=== PATIENT | male | born 1995 | race Two or more races ===

== ENCOUNTER 2016-07-24 20:57 | Emergency (ER) | payer MEDICAID ==
[~2016-07-24] VITALS: Ht 193 cm; Wt 103.1 kg
[~2016-07-24 20:57] MED LIST: ALBU0.63 NEB; BECL8.7A5 INH; MONT10TA6 PO
[2016-07-24 21:00] VITALS: BP 150/96
[2016-07-24] MEDS ORDERED: KETOROLAC 30 MG/1 ML IM ONE (22:00)
[2016-07-24] MEDS ORDERED: METHOCARBAMOL 750 MG TABLET PO ONE (22:00)
[2016-07-24] MEDS ORDERED: KETOROLAC 30 MG/1 ML ONE (22:00)
[2016-07-24] MEDS ORDERED: METHOCARBAMOL 750 MG TABLET ONE (22:00)
== END 2016-07-24 23:22 | disposition home or self-care (01) ==
LOC: ED 23:16
DX: S76.011A Strain of muscle, fascia and tendon of right hip, initial encounter (principal); F12.10 Cannabis abuse, uncomplicated; X50.9XXA Other and unspecified overexertion or strenuous movements or postures, initial encounter; Y93.89 Activity, other specified; Y92.89 Other specified places as the place of occurrence of the external cause; Y99.8 Other external cause status; Z87.891 Personal history of nicotine dependence
CPT/HCPCS: 73552; 96372; 99284; J1885

== ENCOUNTER 2018-07-05 13:51 | Emergency (ER) | payer MEDICAID, OTHER ==
[~2018-07-05] VITALS: Ht 188 cm; Wt 102.1 kg
[~2018-07-05 13:51] MED LIST changes: -BECL8.7A5 INH; +BECL8.7A7 INH
[2018-07-05 14:00] VITALS: BP 133/87
[2018-07-05 14:25] LABS: BASOPHILS # (AUTO) 0.04 x10^3/uL (0-0.1); BASOPHILS % (AUTO) 0 % (0-1); EOSINOPHILS # (AUTO) 0.37 x10^3/uL (0-0.4); EOSINOPHILS % (AUTO) 4 % (1-7); LYMPHOCYTES # (AUTO) 3.09 x10^3/uL (1-3.4); LYMPHOCYTES % (AUTO) 31 % (22-44); MD NO; MEAN CORPUSCULAR HEMOGLOBIN 28.5 pg (27.5-34.5); MEAN CORPUSCULAR HGB CONC 33.3 g/dL (33.2-36.2); MEAN CORPUSCULAR VOLUME 85.6 fL (81-97); MEAN PLATELET VOLUME 8.8 fL (7.4-10.4); MONOCYTES # (AUTO) 0.83 x10^3/uL (0.2-0.8); MONOCYTES % (AUTO) 8 % (2-9); NEUTROPHILS # (AUTO) 5.56 x10^3/uL (1.8-6.8); NEUTROPHILS % (AUTO) 56 % (42-75); PLATELET COUNT 297 x10^3/uL (130-400); RED BLOOD COUNT 6.18 x10^6/uL (4.38-5.82); RED CELL DISTRIBUTION WIDTH 13.5 % (9.4-14.8)
[2018-07-05 14:32] LABS: ALBUMIN 4.6 g/dL (3.4-5.0); ANION GAP 6 mmol/L (5-15); CHLORIDE 108 mmol/L (98-107); CREATININE 1.18 mg/dL (0.7-1.3)
--- NOTE | 2018-07-05 15:50 | NUR ---
To room at this time.
--- NOTE | 2018-07-05 16:08 | NUR ---
FIRST CONTACT WITH PT. Patient/Caregiver given discharge instructions and they have confirmed that they understand the instructions. Patient ambulatory with steady gait. PT LEFT WITH ALL PERSONAL BELONGINGS.
== END 2018-07-05 16:10 | disposition home or self-care (01) ==
LOC: ED 16:04
DX: E86.0 Dehydration (principal); R51 Headache
CPT/HCPCS: 36415; 80048; 82040; 85025; 93005; 99284

== ENCOUNTER 2018-12-22 11:26 | Emergency (ER) | payer MEDICAID ==
[~2018-12-22] VITALS: Ht 188 cm; Wt 113.0 kg
[2018-12-22] MEDS ORDERED: HYDROcodone/APAP 5/325 TABLET ONE (12:27)
[2018-12-22] MEDS ORDERED: HYDROcodone/APAP 5/325 TABLET PO ONE (12:30)
--- NOTE | 2018-12-22 12:37 | NUR ---
Plan of care updated with patient, questions answered. Patient laying in bed speaking with family, no vomiting.
[2018-12-22 12:43] LABS: BASOPHILS # (AUTO) 0.04 x10^3/uL (0-0.1); BASOPHILS % (AUTO) 1 % (0-1); EOSINOPHILS # (AUTO) 0.33 x10^3/uL (0-0.4); EOSINOPHILS % (AUTO) 4 % (1-7); LYMPHOCYTES # (AUTO) 3.05 x10^3/uL (1-3.4); LYMPHOCYTES % (AUTO) 36 % (22-44); MD NO; MEAN CORPUSCULAR HEMOGLOBIN 29.9 pg (27.5-34.5); MEAN CORPUSCULAR HGB CONC 33.5 g/dL (33.2-36.2); MEAN CORPUSCULAR VOLUME 89.2 fL (81-97); MEAN PLATELET VOLUME 8.7 fL (7.4-10.4); MONOCYTES # (AUTO) 0.84 x10^3/uL (0.2-0.8); MONOCYTES % (AUTO) 10 % (2-9); NEUTROPHILS # (AUTO) 4.17 x10^3/uL (1.8-6.8); NEUTROPHILS % (AUTO) 49 % (42-75); PLATELET COUNT 253 x10^3/uL (130-400); RED BLOOD COUNT 5.18 x10^6/uL (4.38-5.82); RED CELL DISTRIBUTION WIDTH 13.7 % (9.4-14.8)
[2018-12-22 12:54] LABS: ALANINE AMINOTRANSFERASE 99 U/L (12-78); ALBUMIN 3.9 g/dL (3.4-5.0); ANION GAP 5 mmol/L (5-15); CHLORIDE 107 mmol/L (98-107); CREATININE 0.95 mg/dL (0.7-1.3)
[2018-12-22 12:55] LABS: ALKALINE PHOSPHATASE 69 U/L (45-117); BILIRUBIN,TOTAL 0.6 mg/dL (0.2-1.0); TOTAL PROTEIN 7.1 g/dL (6.4-8.2)
--- NOTE | 2018-12-22 13:36 | NUR ---
Discharge instructions discussed with patient including when to return to emergency department, patient verbalizes understanding. Patient states he is currently pain free, ambulates with steady gait to discharge desk in no acute distress with his mother. Patient's mother to drive him today.
[2018-12-22 13:37] VITALS: BP 130/76
== END 2018-12-22 13:39 | disposition home or self-care (01) ==
LOC: ED 12:32
DX: K62.5 Hemorrhage of anus and rectum (principal); R10.84 Generalized abdominal pain
CPT/HCPCS: 36415; 80053; 83605; 85025; 99283

== ENCOUNTER 2019-03-24 17:29 | Emergency (ER) | payer MEDICAID ==
[~2019-03-24] VITALS: Ht 188 cm; Wt 110.9 kg
[2019-03-24 17:50] VITALS: BP 144/96
[2019-03-24 18:18] LABS: BASOPHILS # (AUTO) 0.04 x10^3/uL (0-0.1); BASOPHILS % (AUTO) 1 % (0-1); EOSINOPHILS # (AUTO) 0.22 x10^3/uL (0-0.4); EOSINOPHILS % (AUTO) 3 % (1-7); LYMPHOCYTES # (AUTO) 3.22 x10^3/uL (1-3.4); LYMPHOCYTES % (AUTO) 39 % (22-44); MD NO; MEAN CORPUSCULAR HEMOGLOBIN 29.5 pg (27.5-34.5); MEAN CORPUSCULAR VOLUME 86.7 fL (81-97); MEAN PLATELET VOLUME 8.8 fL (7.4-10.4); MONOCYTES # (AUTO) 0.64 x10^3/uL (0.2-0.8); MONOCYTES % (AUTO) 8 % (2-9); NEUTROPHILS # (AUTO) 4.19 x10^3/uL (1.8-6.8); NEUTROPHILS % (AUTO) 50 % (42-75); PLATELET COUNT 257 x10^3/uL (130-400); RED BLOOD COUNT 5.48 x10^6/uL (4.38-5.82); RED CELL DISTRIBUTION WIDTH 13.2 % (9.4-14.8)
[2019-03-24 18:27] LABS: ALANINE AMINOTRANSFERASE 92 U/L (12-78); ALBUMIN 4.5 g/dL (3.4-5.0); ANION GAP 5 mmol/L (5-15); CALCIUM 9.2 mg/dL (8.5-10.1); CHLORIDE 111 mmol/L (98-107); CREATININE 1.11 mg/dL (0.7-1.3)
[2019-03-24 18:30] LABS: ALKALINE PHOSPHATASE 66 U/L (45-117); BILIRUBIN,TOTAL 0.5 mg/dL (0.2-1.0); TOTAL PROTEIN 7.3 g/dL (6.4-8.2)
[2019-03-24 20:18] LABS: MICROSCOPIC NOT IND
[2019-03-24 20:24] LABS: CULTURE INDICATED? NO
--- NOTE | 2019-03-24 23:42 | NUR ---
NO ANSWER FOR RE-VITAL.
--- NOTE | 2019-03-25 00:06 | NUR ---
NILX2
--- NOTE | 2019-03-25 00:08 | NUR ---
NILX3
--- NOTE | 2019-03-25 00:09 | NUR ---
NO ANSWER WHEN CALLED TO ROOM PATIENT.
== END 2019-03-25 00:10 | disposition left against medical advice (07) ==
LOC: ED 03-25 00:04
DX: R10.84 Generalized abdominal pain (principal); K92.1 Melena
CPT/HCPCS: 36415; 80053; 81003; 85025; 99283

== ENCOUNTER 2019-04-18 17:10 | Emergency (ER) | payer MEDICAID ==
[~2019-04-18] VITALS: Ht 182.9 cm; Wt 115.0 kg
[2019-04-18 17:32] VITALS: BP 119/80
[2019-04-18 17:57] LABS: BASOPHILS # (AUTO) 0.03 x10^3/uL (0-0.1); BASOPHILS % (AUTO) 0 % (0-1); EOSINOPHILS # (AUTO) 0.29 x10^3/uL (0-0.4); EOSINOPHILS % (AUTO) 3 % (1-7); LYMPHOCYTES # (AUTO) 3.09 x10^3/uL (1-3.4); LYMPHOCYTES % (AUTO) 36 % (22-44); MD NO; MEAN CORPUSCULAR HEMOGLOBIN 29.6 pg (27.5-34.5); MEAN CORPUSCULAR HGB CONC 34.3 g/dL (33.2-36.2); MEAN CORPUSCULAR VOLUME 86.2 fL (81-97); MEAN PLATELET VOLUME 8.4 fL (7.4-10.4); MONOCYTES % (AUTO) 8 % (2-9); NEUTROPHILS % (AUTO) 52 % (42-75); PLATELET COUNT 252 x10^3/uL (130-400); RED BLOOD COUNT 5.51 x10^6/uL (4.38-5.82); RED CELL DISTRIBUTION WIDTH 13.1 % (9.4-14.8)
[2019-04-18] MEDS ORDERED: SODIUM CHLORIDE FLUSH 10ML SYR IVF ONE (18:00)
[2019-04-18] MEDS ORDERED: MORPHINE SULFATE 4 MG/ML, 1ML IVPush PRN (18:00)
[2019-04-18] MEDS ORDERED: ONDANSETRON 2MG/ML, 2ML IVPush ONE (18:00)
[2019-04-18] MEDS ORDERED: SODIUM CHLORIDE 0.9% 1,000ML IVBOLUS ONE (18:00)
[2019-04-18 18:02] LABS: INTERNATIONAL NORMALIZED RATIO 0.94 (0.93-1.1)
[2019-04-18 18:05] LABS: ALANINE AMINOTRANSFERASE 118 U/L (12-78); ANION GAP 5 mmol/L (5-15); CALCIUM 9.2 mg/dL (8.5-10.1); CHLORIDE 107 mmol/L (98-107)
[2019-04-18 18:07] LABS: ALKALINE PHOSPHATASE 66 U/L (45-117); BILIRUBIN,TOTAL 0.4 mg/dL (0.2-1.0); TOTAL PROTEIN 7.2 g/dL (6.4-8.2)
--- NOTE | 2019-04-18 19:17 | NUR ---
pt called to room from lobby
--- NOTE | 2019-04-18 19:18 | NUR ---
not in lobby
--- NOTE | 2019-04-18 19:40 | NUR ---
not in lobby
--- NOTE | 2019-04-18 19:58 | NUR ---
not in lobby
== END 2019-04-18 20:00 | disposition left against medical advice (07) ==
LOC: ED 18:10
DX: K62.5 Hemorrhage of anus and rectum (principal); R11.2 Nausea with vomiting, unspecified
CPT/HCPCS: 36415; 80053; 85025; 85610; 99283

== ENCOUNTER 2019-06-01 17:17 | Emergency (ER) | payer MEDICAID ==
[~2019-06-01] VITALS: Ht 190.5 cm; Wt 98.2 kg
[2019-06-01] MEDS ORDERED: ALBUTEROL HFA 90 MCG/SPRAY INH ONE (17:30)
[2019-06-01] MEDS ORDERED: ALBUTEROL HFA 90 MCG/SPRAY INH PRN (17:30)
[2019-06-01] MEDS ORDERED: PRED20TA PO (17:35)
[2019-06-01] MEDS ORDERED: ACET-1600 PO (17:36)
[2019-06-01] MEDS ORDERED: MESA1.2T3 PO (17:37)
[2019-06-01] MEDS ORDERED: MELO15TA24 PO (17:37)
[2019-06-01] MEDS ORDERED: CHOL10002 PO (17:39)
[2019-06-01] MEDS ORDERED: GUAN2TAB15 PO (17:39)
[2019-06-01 17:40] VITALS: BP 147/91
== END 2019-06-01 18:46 | disposition home or self-care (01) ==
LOC: ED 17:35
DX: J45.41 Moderate persistent asthma with (acute) exacerbation (principal); R05 Cough; Z87.891 Personal history of nicotine dependence
CPT/HCPCS: 71045; 93005; 99283

== ENCOUNTER 2019-08-15 08:35 | Outpatient (CLI) | payer MEDICAID ==
[~2019-08-15 08:35] MED LIST changes: +ACET-1600 PO; +CHOL10002 PO; +GUAN2TAB15 PO; +MELO15TA24 PO; +MESA1.2T3 PO; +PRED20TA PO
[2019-08-15] MEDS ORDERED: GADOTERATE 10 MMOL/20 ML VIAL ONE (10:00)
[2019-08-15] MEDS ORDERED: GLUCAGON 1 MG ONE (10:00)
== END 2019-08-15 23:59 | disposition home or self-care (01) ==
LOC: CFH 08:35
PROVIDERS: ATTEND Internal Medicine Gastroenterology
DX: K62.5 Hemorrhage of anus and rectum (principal); K50.00 Crohn's disease of small intestine without complications; K59.00 Constipation, unspecified; R10.9 Unspecified abdominal pain; R13.19 Other dysphagia
CPT/HCPCS: 70210; 72197; 74183; A9575; J1610

== ENCOUNTER 2019-08-27 09:33 | Emergency (ER) | payer MEDICAID ==
[~2019-08-27] VITALS: Ht 188 cm; Wt 118.0 kg
[2019-08-27 10:23] LABS: BASOPHILS # (AUTO) 0.04 x10^3/uL (0-0.1); BASOPHILS % (AUTO) 1 % (0-1); EOSINOPHILS # (AUTO) 0.12 x10^3/uL (0-0.4); EOSINOPHILS % (AUTO) 2 % (1-7); LYMPHOCYTES # (AUTO) 3.26 x10^3/uL (1-3.4); LYMPHOCYTES % (AUTO) 39 % (22-44); MD NO; MEAN CORPUSCULAR HEMOGLOBIN 29.8 pg (27.5-34.5); MEAN CORPUSCULAR HGB CONC 33.8 g/dL (33.2-36.2); MEAN CORPUSCULAR VOLUME 88.2 fL (81-97); MEAN PLATELET VOLUME 8.3 fL (7.4-10.4); MONOCYTES # (AUTO) 0.74 x10^3/uL (0.2-0.8); MONOCYTES % (AUTO) 9 % (2-9); NEUTROPHILS # (AUTO) 4.13 x10^3/uL (1.8-6.8); NEUTROPHILS % (AUTO) 50 % (42-75); PLATELET COUNT 259 x10^3/uL (130-400); RED BLOOD COUNT 5.58 x10^6/uL (4.38-5.82); RED CELL DISTRIBUTION WIDTH 12.9 % (9.4-14.8)
[2019-08-27] MEDS ORDERED: SODIUM CHLORIDE FLUSH 10ML SYR IVF ONE (10:30)
[2019-08-27] MEDS ORDERED: ONDANSETRON 2MG/ML, 2ML IVPush ONE (10:30)
[2019-08-27] MEDS ORDERED: HYDROmorphone 2 MG/ML, 1ML IVPush PRN (10:30)
[2019-08-27 10:36] LABS: ALANINE AMINOTRANSFERASE 153 U/L (12-78); ALBUMIN 4.4 g/dL (3.4-5.0); ANION GAP 8 mmol/L (5-15); CALCIUM 9.6 mg/dL (8.5-10.1); CHLORIDE 109 mmol/L (98-107)
[2019-08-27 10:38] LABS: ALKALINE PHOSPHATASE 61 U/L (45-117); BILIRUBIN,TOTAL 0.9 mg/dL (0.2-1.0); CREATININE 1.06 mg/dL (0.7-1.3); TOTAL PROTEIN 7.7 g/dL (6.4-8.2)
--- NOTE | 2019-08-27 11:00 | NUR ---
REPORT RC'VD FROM [facility] AND CARE OF PT ASSUMED.
[2019-08-27] MEDS ORDERED: HYDROmorphone 2 MG/ML, 1ML ONE (11:11)
[2019-08-27] MEDS ORDERED: ONDANSETRON 2MG/ML, 2ML ONE (11:12)
--- NOTE | 2019-08-27 11:15 | NUR ---
Anamika sharma in EDM - 08/27/19 at 1159 by MISSYON ALL MONITORS IN PLACE. PT AFIB 70s-90s. IV STARTED AND LABS DRAWN. RV'WD POC WITH PT.
--- NOTE | 2019-08-27 11:27 | NUR ---
PT MEDICATED PER ORDERS. STATES, "THIS IS DEFINITELY A CROHN'S FLARE UP. I'VE BEEN UNDER A LOT OF STRESS LATELY, AND MY CROHN'S FLARES UP WHEN I'M STRESSED." Addendum: 08/27/19 at 1129 by HBENSON PT HAD SOME NAUSEA/DRY HEAVING AFTER MEDS. WATER PROVIDED.
[2019-08-27 11:40] LABS: MICROSCOPIC NOT IND
--- NOTE | 2019-08-27 11:53 | NUR ---
GEOFF TORRES AT FOR RECHECK.
[2019-08-27 12:30] VITALS: BP 145/104
--- NOTE | 2019-08-27 12:30 | NUR ---
D/C INSTRUCTIONS, MEDS & F/U APPT RV'WD WITH PT, HE VERBALIZES UNDERSTANDING. RX GIVEN X1. PT AMBULATED OUT OF ED WITHOUT DIFFICULTY.
== END 2019-08-27 12:36 | disposition home or self-care (01) ==
LOC: ED 11:30
DX: K50.90 Crohn's disease, unspecified, without complications (principal); Z20.828 Contact with and (suspected) exposure to other viral communicable diseases; G89.29 Other chronic pain; R10.84 Generalized abdominal pain; J45.901 Unspecified asthma with (acute) exacerbation; Z87.891 Personal history of nicotine dependence; Z76.0 Encounter for issue of repeat prescription
CPT/HCPCS: 36415; 71045; 80053; 81003; 83690; 85025; 96374; 96375; 99284; J1170; J2405; U0001

== ENCOUNTER 2019-09-18 13:04 | Emergency (ER) | payer MEDICAID ==
[~2019-09-18] VITALS: Ht 188 cm; Wt 118.2 kg
--- NOTE | 2019-09-18 13:50 | NUR ---
STAFF COUNSELOR: PT TO ROOM FROM ELKE RUIZ
[2019-09-18] MEDS ORDERED: SODIUM CHLORIDE FLUSH 10ML SYR IVF ONE (14:00)
[2019-09-18] MEDS ORDERED: SODIUM CHLORIDE 0.9% 1,000ML IVBOLUS ONE (14:00)
[2019-09-18] MEDS ORDERED: MORPHINE SULFATE 4 MG/ML, 1ML IVPush PRN (14:00)
[2019-09-18] MEDS ORDERED: METOCLOPRAMIDE 5 MG/ML, 2ML IVPush ONE (14:00)
[2019-09-18] MEDS ORDERED: DIPHENHYDRAMINE 50 MG/ML, 1ML IVPush ONE (14:00)
[2019-09-18] MEDS ORDERED: METOCLOPRAMIDE 5 MG/ML, 2ML ONE (14:05)
[2019-09-18] MEDS ORDERED: MORPHINE SULFATE 4 MG/ML, 1ML ONE (14:05)
[2019-09-18] MEDS ORDERED: DIPHENHYDRAMINE 50 MG/ML, 1ML ONE (14:05)
[2019-09-18 14:16] LABS: BASOPHILS # (AUTO) 0.03 x10^3/uL (0-0.1); BASOPHILS % (AUTO) 0 % (0-1); EOSINOPHILS # (AUTO) 0.22 x10^3/uL (0-0.4); EOSINOPHILS % (AUTO) 2 % (1-7); LYMPHOCYTES # (AUTO) 2.97 x10^3/uL (1-3.4); LYMPHOCYTES % (AUTO) 32 % (22-44); MD NO; MEAN CORPUSCULAR HGB CONC 32.6 g/dL (33.2-36.2); MEAN CORPUSCULAR VOLUME 89.1 fL (81-97); MEAN PLATELET VOLUME 8.7 fL (7.4-10.4); MONOCYTES # (AUTO) 0.62 x10^3/uL (0.2-0.8); MONOCYTES % (AUTO) 7 % (2-9); NEUTROPHILS # (AUTO) 5.47 x10^3/uL (1.8-6.8); NEUTROPHILS % (AUTO) 59 % (42-75); PLATELET COUNT 270 x10^3/uL (130-400); RED BLOOD COUNT 5.53 x10^6/uL (4.38-5.82); RED CELL DISTRIBUTION WIDTH 12.8 % (9.4-14.8)
[2019-09-18 14:21] VITALS: BP 149/98
[2019-09-18 14:21] LABS: INTERNATIONAL NORMALIZED RATIO 0.93 (0.93-1.1); PROTHROMBIN TIME 9.8 Seconds (9.6-11.5)
[2019-09-18 14:22] LABS: ALANINE AMINOTRANSFERASE 76 U/L (12-78); ALBUMIN 4.3 g/dL (3.4-5.0); ANION GAP 5 mmol/L (5-15); CALCIUM 9.6 mg/dL (8.5-10.1); CHLORIDE 111 mmol/L (98-107); CREATININE 1.04 mg/dL (0.7-1.3)
--- NOTE | 2019-09-18 14:22 | NUR ---
pt to ed from home. c/o abd pain, diarrhea w/ dark and bright blood x2 days, bruising mid abd that has gotten worse, denies trauma. hx crohns, sts med compliance but does not know all names. c/o dizzy, weak, nausea no vomiting. law at bedside for eval. piv/labs/meds/fluids plan ct scan. call [facility] in reach. as
[2019-09-18 14:27] LABS: ALKALINE PHOSPHATASE 92 U/L (45-117); BILIRUBIN,TOTAL 0.3 mg/dL (0.2-1.0); TOTAL PROTEIN 7.3 g/dL (6.4-8.2)
--- NOTE | 2019-09-18 15:04 | NUR ---
REPORT RECEIVED FROM DUSTIN BARNES. ASSUMED CARE
--- NOTE | 2019-09-18 15:04 | NUR ---
pt drowsing after meds awaiting ct. report to tanna best. as
[2019-09-18] MEDS ORDERED: OMNIPAQUE 350 MG/ML, 100ML BOTTLE ONE (15:39)
== END 2019-09-18 16:44 | disposition home or self-care (01) ==
LOC: ED 14:07
DX: R10.84 Generalized abdominal pain (principal); R19.7 Diarrhea, unspecified; R68.83 Chills (without fever); J45.909 Unspecified asthma, uncomplicated; Z87.891 Personal history of nicotine dependence
CPT/HCPCS: 36415; 74177; 80053; 85025; 85610; 85730; 96361; 96374; 96375; 99285; J1200; J2270; J2765; J7030; Q9967

== ENCOUNTER 2019-09-20 11:00 | Emergency (ER) | payer MEDICAID ==
[~2019-09-20] VITALS: Ht 190.5 cm; Wt 116.1 kg
--- NOTE | 2019-09-20 11:12 | NUR ---
PT CAME IN CO OF ABD PAIN AND BRUISING. DENIES TRAUMA. WAS SEEN 3 DAYS AGO FOR EXACT SAME THING. WAS TOLD TO FOLLOW UP WITH GI. GI HAS SCHEDULED HIM AN ENDOSCOPY FOR TOMORROW. BUT, GI ALSO TOLD HIM IF PAIN PERSISTS TO COME BACK TO ED. WAS ORIGINALLY SENT HOME WITH NORCO 5MG. SAID "I TOOK ALL THOSE. DIDNT DO ANYTHING". PT IS RESTING IN [facility]. AWAITING MD.
[2019-09-20 11:37] LABS: BASOPHILS # (AUTO) 0.04 x10^3/uL (0-0.1); BASOPHILS % (AUTO) 0 % (0-1); EOSINOPHILS # (AUTO) 0.24 x10^3/uL (0-0.4); EOSINOPHILS % (AUTO) 3 % (1-7); LYMPHOCYTES # (AUTO) 3.48 x10^3/uL (1-3.4); LYMPHOCYTES % (AUTO) 36 % (22-44); MD NO; MEAN CORPUSCULAR HEMOGLOBIN 29.2 pg (27.5-34.5); MEAN CORPUSCULAR HGB CONC 32.8 g/dL (33.2-36.2); MEAN CORPUSCULAR VOLUME 89.2 fL (81-97); MEAN PLATELET VOLUME 8.5 fL (7.4-10.4); MONOCYTES # (AUTO) 0.63 x10^3/uL (0.2-0.8); MONOCYTES % (AUTO) 7 % (2-9); NEUTROPHILS # (AUTO) 5.28 x10^3/uL (1.8-6.8); NEUTROPHILS % (AUTO) 55 % (42-75); PLATELET COUNT 279 x10^3/uL (130-400); RED CELL DISTRIBUTION WIDTH 12.9 % (9.4-14.8)
[2019-09-20 11:39] LABS: MICROSCOPIC NOT IND
[2019-09-20 12:35] VITALS: BP 153/101
--- NOTE | 2019-09-20 12:35 | NUR ---
PT RESTING IN [facility]. VSS. ON CELL PHONE.
[2019-09-20 12:51] LABS: ALANINE AMINOTRANSFERASE 82 U/L (12-78); ALBUMIN 4.1 g/dL (3.4-5.0); ANION GAP 5 mmol/L (5-15); CALCIUM 8.9 mg/dL (8.5-10.1); CHLORIDE 109 mmol/L (98-107); CREATININE 1.17 mg/dL (0.7-1.3)
[2019-09-20 12:57] LABS: ALKALINE PHOSPHATASE 65 U/L (45-117); BILIRUBIN,TOTAL 0.4 mg/dL (0.2-1.0); TOTAL PROTEIN 7.3 g/dL (6.4-8.2)
== END 2019-09-20 13:25 | disposition home or self-care (01) ==
LOC: ED 12:42
DX: S30.1XXA Contusion of abdominal wall, initial encounter (principal); K50.00 Crohn's disease of small intestine without complications; K62.5 Hemorrhage of anus and rectum; J45.909 Unspecified asthma, uncomplicated; X58.XXXA Exposure to other specified factors, initial encounter; Y93.89 Activity, other specified; Y92.89 Other specified places as the place of occurrence of the external cause; Y99.8 Other external cause status
CPT/HCPCS: 36415; 80053; 81003; 83690; 85025; 99283

== ENCOUNTER 2019-09-23 05:50 | Inpatient (IN) | payer MEDICAID ==
[~2019-09-23] VITALS: Ht 188 cm; Wt 113.7 kg
[2019-09-23 06:29] LABS: BASOPHILS # (AUTO) 0.03 x10^3/uL (0-0.1); BASOPHILS % (AUTO) 0 % (0-1); EOSINOPHILS # (AUTO) 0.29 x10^3/uL (0-0.4); EOSINOPHILS % (AUTO) 3 % (1-7); LYMPHOCYTES # (AUTO) 4.01 x10^3/uL (1-3.4); LYMPHOCYTES % (AUTO) 37 % (22-44); MD NO; MEAN CORPUSCULAR HEMOGLOBIN 29.6 pg (27.5-34.5); MEAN CORPUSCULAR HGB CONC 33.8 g/dL (33.2-36.2); MEAN PLATELET VOLUME 9.3 fL (7.4-10.4); MONOCYTES # (AUTO) 0.78 x10^3/uL (0.2-0.8); MONOCYTES % (AUTO) 7 % (2-9); NEUTROPHILS # (AUTO) 5.66 x10^3/uL (1.8-6.8); NEUTROPHILS % (AUTO) 53 % (42-75); PLATELET COUNT 253 x10^3/uL (130-400); RED BLOOD COUNT 5.58 x10^6/uL (4.38-5.82)
[2019-09-23] MEDS ORDERED: SODIUM CHLORIDE FLUSH 10ML SYR IVF ONE (06:30)
[2019-09-23] MEDS ORDERED: SODIUM CHLORIDE 0.9% 1,000ML IVBOLUS ONE (06:30)
[2019-09-23] MEDS ORDERED: HYDROmorphone 1 MG/ML, 1ML INJ IVPush PRN (06:30)
[2019-09-23] MEDS ORDERED: ONDANSETRON 2MG/ML, 2ML IVPush ONE (06:30)
[2019-09-23] MEDS ORDERED: ONDANSETRON 2MG/ML, 2ML ONE (06:33)
[2019-09-23] MEDS ORDERED: HYDROmorphone 1 MG/ML, 1ML INJ ONE (06:33)
[2019-09-23 06:38] LABS: ALBUMIN 4.3 g/dL (3.4-5.0); ANION GAP 7 mmol/L (5-15); CALCIUM 9.4 mg/dL (8.5-10.1); CHLORIDE 107 mmol/L (98-107)
[2019-09-23 06:42] LABS: ALANINE AMINOTRANSFERASE 133 U/L (12-78); ALKALINE PHOSPHATASE 88 U/L (45-117); BILIRUBIN,TOTAL 0.5 mg/dL (0.2-1.0); CREATININE 1.01 mg/dL (0.7-1.3); TOTAL PROTEIN 7.5 g/dL (6.4-8.2)
--- NOTE | 2019-09-23 06:47 | NUR ---
RECEIVED BEDSIDE REPORT FROM DUSTIN MONTIEL.
--- NOTE | 2019-09-23 06:58 | NUR ---
PT RESTING ON GURNEY. AWAITING ROOM ASSIGNMENT. VSS. NS INFUSING AT THIS TIME PT PREFERS TO LAY SUPINE.
[2019-09-23] MEDS ORDERED: BUDESONIDE (07:01)
[2019-09-23] MEDS ORDERED: OMNIPAQUE 350 MG/ML, 100ML BOTTLE ONE (07:22)
[2019-09-23] MEDS ORDERED: methylPREDNISolone SOD SUCC 125 MG/2 ML IVPush ONE (08:00)
[2019-09-23] MEDS ORDERED: methylPREDNISolone SOD SUCC 125 MG/2 ML ONE (08:09)
--- NOTE | 2019-09-23 08:23 | NUR ---
REPORT TO DUSTIN JESUS. ALL QUESTIONS ANSWERED.
--- NOTE | 2019-09-23 08:29 | NUR ---
HOSPITALIST BEDSIDE. NADN. MEDICATION ADMINISTERED PER ORDER. NO OTHER NEEDS REQUESTED AT THIS TIME. PT READY FOR TRANSPORT.
--- NOTE | 2019-09-23 08:52 | NUR ---
PT TRANSFERRED TO FLOOR. PT LEFT WITH ALL PERSONAL BELONGINGS.
[2019-09-23 08:55] VITALS: BP 133/87
[2019-09-23 08:59] VITALS: BP 133/97
[2019-09-23] MEDS ORDERED: POTASSIUM CHLORIDE 10 MEQ in LACTATED RINGERS 1,000 ML IV SCH (09:12)
[2019-09-23] MEDS ORDERED: hydrALAzine 20 MG/ML, 1ML IVPush PRN (09:30)
[2019-09-23] MEDS ORDERED: MELATONIN 5 MG TABLET PO PRN (09:30)
[2019-09-23] MEDS: HYDROmorphone 2 MG/ML, 1ML IVPush PRN ×4 (09:50→22:08)
[2019-09-23 13:53] VITALS: BP 135/89
[2019-09-23 14:40] VITALS: BP 149/99
[2019-09-23] MEDS ORDERED: DOCUSATE 100 MG CAPSULE PO PRN (16:30)
[2019-09-23] MEDS ORDERED: BISACODYL 10 MG SUPP PR PRN (16:30)
[2019-09-23] MEDS ORDERED: POLYETHYLENE GLYCOL 17 GM PACKET PO PRN (16:30)
[2019-09-23] MEDS ORDERED: GOLYTELY 4,000ML ORAL.SOL PO ONE (19:00)
[2019-09-23 19:18] VITALS: BP 153/98
[2019-09-23] MEDS: ONDANSETRON 2MG/ML, 2ML IVPush PRN (19:56)
[2019-09-23] MEDS: OXYcodone IR 5MG TABLET PO PRN (19:56)
[2019-09-23] MEDS ORDERED: MESALAMINE 1,000 MG SUPP.RECT PR SCH (21:00)
[2019-09-23 21:03] LABS: CLOSTRIDIUM DIFFICILE ANTIGEN NEGATIVE; CLOSTRIDIUM DIFFICILE TOXIN NEGATIVE (Negative)
[2019-09-24 00:01] VITALS: BP 124/80
[2019-09-24 05:26] LABS: HCT (SEDRATE) 48.8 % (39.2-51.8)
[2019-09-24 05:34] LABS: BASOPHILS # (AUTO) 0.03 x10^3/uL (0-0.1); BASOPHILS % (AUTO) 0 % (0-1); EOSINOPHILS # (AUTO) 0.03 x10^3/uL (0-0.4); EOSINOPHILS % (AUTO) 0 % (1-7); LYMPHOCYTES # (AUTO) 2.97 x10^3/uL (1-3.4); LYMPHOCYTES % (AUTO) 22 % (22-44); MD NO; MEAN CORPUSCULAR HEMOGLOBIN 29.2 pg (27.5-34.5); MEAN CORPUSCULAR HGB CONC 32.8 g/dL (33.2-36.2); MEAN PLATELET VOLUME 8.9 fL (7.4-10.4); MONOCYTES # (AUTO) 1.11 x10^3/uL (0.2-0.8); MONOCYTES % (AUTO) 8 % (2-9); NEUTROPHILS # (AUTO) 9.47 x10^3/uL (1.8-6.8); NEUTROPHILS % (AUTO) 70 % (42-75); PLATELET COUNT 268 x10^3/uL (130-400); RED BLOOD COUNT 5.57 x10^6/uL (4.38-5.82); RED CELL DISTRIBUTION WIDTH 13.2 % (9.4-14.8)
[2019-09-24 05:40] LABS: ALBUMIN 4.1 g/dL (3.4-5.0); ANION GAP 8 mmol/L (5-15); CALCIUM 9.6 mg/dL (8.5-10.1); CHLORIDE 106 mmol/L (98-107)
[2019-09-24 06:08] LABS: ALANINE AMINOTRANSFERASE 114 U/L (12-78); ALKALINE PHOSPHATASE 55 U/L (45-117); BILIRUBIN,TOTAL 0.5 mg/dL (0.2-1.0); CREATININE 0.97 mg/dL (0.7-1.3); TOTAL PROTEIN 7.2 g/dL (6.4-8.2)
[2019-09-24 07:43] VITALS: BP 155/99
[2019-09-24] MEDS: BUDESONIDE 3 MG CAP DR.ER PO SCH (08:28)
[2019-09-24 08:55] LABS: CRYPTOSPORIDIUM ANTIGEN Negative (Negative)
[2019-09-24] MEDS ORDERED: POTASSIUM CHLORIDE 10 MEQ in LACTATED RINGERS 1,000 ML IV SCH (09:12)
[2019-09-24] MEDS ORDERED: PROPOFOL 10 MG/ML, 20ML ONE ×8 (11:08→11:19)
[2019-09-24] MEDS ORDERED: HYDROmorphone 1 MG/ML, 1ML INJ ONE (11:52)
[2019-09-24] MEDS ORDERED: MEPERIDINE/PF 25MG/0.5ML IVPush PRN (12:00)
[2019-09-24] MEDS ORDERED: ALBUTEROL SULFATE 2.5 MG/3 ML NPPB PRN (12:00)
[2019-09-24] MEDS ORDERED: EPHEDRINE 50 MG/ML, 1ML IVPush PRN (12:00)
[2019-09-24] MEDS ORDERED: ONDANSETRON 2MG/ML, 2ML IVPush PRN (12:00)
[2019-09-24] MEDS ORDERED: OXYcodone 5 MG/5 ML ORAL.SOL UDC PO PRN (12:00)
[2019-09-24] MEDS ORDERED: HYDROmorphone 1 MG/ML, 1ML INJ IVPush PRN (12:00)
[2019-09-24] MEDS ORDERED: PROMETHAZINE 25 MG/ML, 1ML IVPush PRN (12:00)
[2019-09-24] MEDS ORDERED: DIAZEPAM 5 MG/ML, 2ML IVPush PRN (12:00)
[2019-09-24] MEDS ORDERED: DIPHENHYDRAMINE 50 MG/ML, 1ML IVPush PRN (12:00)
[2019-09-24] MEDS ORDERED: FENTANYL PF 100 MCG/2ML IV PRN (12:00)
[2019-09-24] MEDS ORDERED: hydrALAzine 20 MG/ML, 1ML IV PRN (12:00)
[2019-09-24] MEDS ORDERED: MIDAZOLAM 1 MG/ML, 2ML IV PRN (12:00)
[2019-09-24] MEDS ORDERED: LABETALOL 5MG/ML, 20ML IV PRN (12:00)
[2019-09-24] MEDS ORDERED: ONDANSETRON 2MG/ML, 2ML ONE (12:05)
[2019-09-24 14:01] VITALS: BP 125/79
[2019-09-24] MEDS ORDERED: DICYCLOMINE 10 MG CAPSULE PO ONE (16:30)
[2019-09-24] MEDS ORDERED: DICYCLOMINE 20 MG TABLET PO SCH ×2 (16:30→21:00)
[2019-09-24] MEDS: DICYCLOMINE 20 MG TABLET PO SCH ×2 (16:53→21:32)
[2019-09-24] MEDS: ONDANSETRON 2MG/ML, 2ML IVPush PRN (17:01)
[2019-09-24] MEDS: OXYcodone IR 5MG TABLET PO PRN ×2 (18:34→22:23)
[2019-09-24 19:14] VITALS: BP 142/88
[2019-09-24] MEDS: HYDROCORTISONE 25 MG SUPP PR SCH (21:54)
[2019-09-25 00:32] VITALS: BP 128/76
[2019-09-25 05:41] LABS: INTERNATIONAL NORMALIZED RATIO 0.98 (0.93-1.1); PROTHROMBIN TIME 10.4 Seconds (9.6-11.5)
[2019-09-25 05:43] LABS: CHLORIDE 107 mmol/L (98-107)
[2019-09-25 05:53] LABS: ALANINE AMINOTRANSFERASE 123 U/L (12-78); ALKALINE PHOSPHATASE 52 U/L (45-117); ANION GAP 6 mmol/L (5-15); BILIRUBIN,TOTAL 0.7 mg/dL (0.2-1.0); CALCIUM 9.1 mg/dL (8.5-10.1); CREATININE 1.01 mg/dL (0.7-1.3); TOTAL PROTEIN 6.9 g/dL (6.4-8.2)
[2019-09-25 05:54] LABS: BASOPHILS # (AUTO) 0.04 x10^3/uL (0-0.1); BASOPHILS % (AUTO) 1 % (0-1); EOSINOPHILS # (AUTO) 0.17 x10^3/uL (0-0.4); EOSINOPHILS % (AUTO) 2 % (1-7); LYMPHOCYTES # (AUTO) 3.76 x10^3/uL (1-3.4); LYMPHOCYTES % (AUTO) 40 % (22-44); MD NO; MEAN CORPUSCULAR HEMOGLOBIN 29.1 pg (27.5-34.5); MONOCYTES % (AUTO) 7 % (2-9); NEUTROPHILS # (AUTO) 4.75 x10^3/uL (1.8-6.8); NEUTROPHILS % (AUTO) 50 % (42-75); PLATELET COUNT 247 x10^3/uL (130-400); RED BLOOD COUNT 5.53 x10^6/uL (4.38-5.82); RED CELL DISTRIBUTION WIDTH 12.9 % (9.4-14.8)
[2019-09-25] MEDS ORDERED: OMEPRAZOLE 20 MG CAPSULE.DR PO SCH (06:00)
[2019-09-25] MEDS: DICYCLOMINE 20 MG TABLET PO SCH ×3 (06:28→16:20)
[2019-09-25] MEDS: OXYcodone IR 5MG TABLET PO PRN ×2 (06:35→12:00)
[2019-09-25 06:37] VITALS: BP 136/89
[2019-09-25] MEDS: BUDESONIDE 3 MG CAP DR.ER PO SCH (08:46)
[2019-09-25] MEDS: HYDROCORTISONE 25 MG SUPP PR SCH (08:46)
[2019-09-25] MEDS: ONDANSETRON 2MG/ML, 2ML IVPush PRN (08:54)
[2019-09-25] MEDS ORDERED: MESALAMINE 1.2 GM TABLET.DR PO SCH (09:00)
[2019-09-25] MEDS: PROCHLORPERAZINE 10MG TABLET PO PRN ×2 (11:59→16:55)
[2019-09-25 14:28] VITALS: BP 142/87
[2019-09-25] MEDS ORDERED: PROC10TA78 PO (15:05)
[2019-09-25] MEDS ORDERED: BUDE3CAP6 PO (15:05)
[2019-09-25] MEDS ORDERED: DICY20TA3 PO (15:05)
[2019-09-25] MEDS ORDERED: MESA1.2T PO (15:05)
[2019-09-25] MEDS ORDERED: HYDR25SU3 PR (15:05)
[2019-09-25] MEDS ORDERED: OMEP-110 PO (15:05)
[2019-09-27 18:37] LABS: ANA SCREEN NEGATIVE (Negative)
== END 2019-09-25 17:00 | disposition home or self-care (01) | DRG 384 ==
LOC: ED 06:05 → EDIP 08:16 → 3N 08:54
PROVIDERS: ADMIT Family Medicine; ATTEND Family Medicine
PROC: 0DBL8ZX Excision of Transverse Colon, Via Natural or Artificial Opening Endoscopic, Diagnostic (ICD-10-PCS; 2019-09-24)
PROC: 0DBB8ZX Excision of Ileum, Via Natural or Artificial Opening Endoscopic, Diagnostic (ICD-10-PCS; 2019-09-24)
PROC: 0DBM8ZX Excision of Descending Colon, Via Natural or Artificial Opening Endoscopic, Diagnostic (ICD-10-PCS; 2019-09-24)
PROC: 0DJ08ZZ Inspection of Upper Intestinal Tract, Via Natural or Artificial Opening Endoscopic (ICD-10-PCS; 2019-09-24)
PROC: 0DBK8ZX Excision of Ascending Colon, Via Natural or Artificial Opening Endoscopic, Diagnostic (ICD-10-PCS; principal; 2019-09-24 10:00)
DX: K26.9 Duodenal ulcer, unspecified as acute or chronic, without hemorrhage or perforation (principal); K50.00 Crohn's disease of small intestine without complications; F32.9 Major depressive disorder, single episode, unspecified; J45.909 Unspecified asthma, uncomplicated; K57.30 Diverticulosis of large intestine without perforation or abscess without bleeding; F12.90 Cannabis use, unspecified, uncomplicated; K29.80 Duodenitis without bleeding; K64.1 Second degree hemorrhoids; L98.9 Disorder of the skin and subcutaneous tissue, unspecified; R13.14 Dysphagia, pharyngoesophageal phase; Z87.891 Personal history of nicotine dependence; Z88.8 Allergy status to other drugs, medicaments and biological substances; Z91.013 Allergy to seafood; Z79.899 Other long term (current) drug therapy
CPT/HCPCS: 36415; 74018; 89055; Q0164; 74177; 80053; 80074; 82103; 82390; 82607; 82728; 82784; 83516; 83540; 83550; 83690; 84443; 85025; 85610; 85651; 86038; 86140; 87324; 87328; 87329; 87635; 88305; 96374; 96375; 99285; G0378; J1170; J2405; J2704; J3480; Q9967; J2930; J7030; J7120

== ENCOUNTER 2020-04-12 19:46 | Emergency (ER) | payer MEDICAID ==
[~2020-04-12] VITALS: Ht 190.5 cm; Wt 118.7 kg
[~2020-04-12 19:46] MED LIST changes: +BUDE3CAP6 PO; +BUDESONIDE; +DICY20TA4 PO; +HYDR25SU3 PR; +MESA1.2T PO; +OMEP-110 PO; +PROC10TA78 PO
[2020-04-12 20:27] LABS: BASOPHILS % (AUTO) 1 % (0-1); EOSINOPHILS % (AUTO) 2 % (1-7); LYMPHOCYTES % (AUTO) 40 % (22-44); MEAN CORPUSCULAR HEMOGLOBIN 29.9 pg (27.5-34.5); MEAN CORPUSCULAR HGB CONC 34.8 g/dL (33.2-36.2); MEAN PLATELET VOLUME 8.8 fL (7.4-10.4); MONOCYTES % (AUTO) 10 % (2-9); NEUTROPHILS % (AUTO) 48 % (42-75); PLATELET COUNT 236 x10^3/uL (130-400); RED BLOOD COUNT 5.48 x10^6/uL (4.38-5.82); RED CELL DISTRIBUTION WIDTH 13.3 % (9.4-14.8)
[2020-04-12 20:28] LABS: MD NO
[2020-04-12 20:36] LABS: ANION GAP 8 mmol/L (5-15); CHLORIDE 109 mmol/L (98-107); CREATININE 1.17 mg/dL (0.7-1.3)
[2020-04-12 21:08] VITALS: BP 141/83
== END 2020-04-12 21:11 | disposition home or self-care (01) ==
LOC: ED 20:30
DX: F12.10 Cannabis abuse, uncomplicated (principal); R00.2 Palpitations; R07.89 Other chest pain; R06.02 Shortness of breath
CPT/HCPCS: 36415; 71045; 80048; 82040; 83735; 84443; 85025; 93005; 99285

== ENCOUNTER 2020-04-17 15:54 | Emergency (ER) | payer MEDICAID ==
[~2020-04-17] VITALS: Ht 190.5 cm; Wt 116.0 kg
--- NOTE | 2020-04-17 16:04 | NUR ---
PT BIB EMS FROM PCP FOR HTN AND CHEST PAIN. PT DENIES CP AT THIS TIME. NO N/V. PT STATES HE HAS ARRYTHMIAS (SVT) AND CHEST PAIN, RESOLVES W REST. PT ON CARD MONITOR. VSS. EKG COMPLETE
[2020-04-17 16:55] LABS: BASOPHILS % (AUTO) 1 % (0-1); EOSINOPHILS % (AUTO) 2 % (1-7); LYMPHOCYTES % (AUTO) 41 % (22-44); MEAN CORPUSCULAR HEMOGLOBIN 29.5 pg (27.5-34.5); MEAN CORPUSCULAR HGB CONC 34.7 g/dL (33.2-36.2); MEAN PLATELET VOLUME 8.4 fL (7.4-10.4); MONOCYTES % (AUTO) 9 % (2-9); NEUTROPHILS % (AUTO) 48 % (42-75); PLATELET COUNT 267 x10^3/uL (130-400); RED BLOOD COUNT 5.98 x10^6/uL (4.38-5.82); RED CELL DISTRIBUTION WIDTH 13.2 % (9.4-14.8)
[2020-04-17 16:56] LABS: MD NO
[2020-04-17 17:04] LABS: ALBUMIN 4.4 g/dL (3.4-5.0); ANION GAP 7 mmol/L (5-15); CALCIUM 9.3 mg/dL (8.5-10.1); CHLORIDE 110 mmol/L (98-107); CREATININE 1.09 mg/dL (0.7-1.3)
[2020-04-17 17:08] LABS: TROPONIN I < 0.015 ng/mL (0.000-0.045)
[2020-04-17 17:19] VITALS: BP 147/91
--- NOTE | 2020-04-17 17:36 | NUR ---
PT DENIES CP AT THIS TIME. PLAN FOR DC
--- NOTE | 2020-04-17 17:36 | NUR ---
Patient/Caregiver given discharge instructions and they have confirmed that they understand the instructions. Patient ambulatory with steady gait.
== END 2020-04-17 17:38 | disposition home or self-care (01) ==
LOC: ED 17:38
DX: R00.2 Palpitations (principal); R07.89 Other chest pain; R94.31 Abnormal electrocardiogram [ECG] [EKG]; J45.909 Unspecified asthma, uncomplicated
CPT/HCPCS: 36415; 71046; 80048; 82040; 84484; 85025; 93005; 99285